=== PATIENT | female | born 1980 | race Caucasian/White ===

== ENCOUNTER 2025-05-27 10:58 | Outpatient (CLI) | payer OTHER, SELFPAY ==
--- NOTE | ~2025-05-27 | MR_ITS ---
MRI of the right ankle Clinical history: Pain Technique: Coronal proton-density and proton-density fat-sat images, axial proton-density and proton- density fat-sat images, and sagittal proton-density and proton-density fat-sat images were acquired. Findings: Syndesmotic ligaments are intact. Anterior and posterior talofibular ligaments, and calcane ofibular ligament are intact. Deltoid ligament intact. Medial flexor tendons, peroneal tendons, anterior extensor tendons, and Achilles tendon are intact. There is no osteochondral lesion of the talar dome. Joint spaces and bone marrow signals are unremark able. There is minimal tibiotalar joint effusion. Plantar fascia intact. Small plantar calcaneal spur present. No mass lesion or fluid collection seen. Impression: No significant abnormality. Reviewed, dictated and finalized at [facility]. Impression: No significant abnormality.
== END 2025-05-27 10:59 | disposition home or self-care (01) ==
LOC: MICIMG 11:04
PROVIDERS: PCP Orthopaedic Surgery; Visit Provider Orthopaedic Surgery
DX: M25.571 Pain in right ankle and joints of right foot (principal)
CPT/HCPCS: 73721